=== PATIENT | male | born 1950 | race Caucasian/White ===

== ENCOUNTER 2021-08-05 02:33 | Outpatient (CLI) | payer OTHER, SELFPAY ==
[2021-08-05 10:14] LABS: Source Nasal/Nares
[2021-08-05 12:54] LABS: COVID-19 PCR Negative (Negative)
== END 2021-08-05 02:34 | disposition home or self-care (01) ==
LOC: LBO 02:33
PROVIDERS: PCP Nurse Practitioner Family; Visit Provider Ophthalmology
DX: Z20.822 Contact with and (suspected) exposure to COVID-19 (principal); Z01.818 Encounter for other preprocedural examination
CPT/HCPCS: 87635

== ENCOUNTER 2021-08-08 09:22 | Day surgery (SDC) | payer OTHER, SELFPAY ==
--- NOTE | 2021-08-07 18:20 | W.PREOPHP ---
Date of service: 08/08/21 Assessment and Plan Assessment and plan (1) Posterior subcapsular age-related cataract of left eye: Status: Acute Assessment and plan: Assessment: Visually significant cataract, left eye. Plan: Cataract extraction with lens implantation of the left eye. (2) Nuclear sclerotic cataract of left eye: Status: Acute Assessment and plan: Assessment: Visually significant cataract, left eye. Plan: Cataract extraction with lens implantation of the left eye. History of Present Illness History of Present Illness Chief Complaint: Progressive decreased vision Narrative: The patient is a 70-year-old male with history of progressive decreased vision in both eyes, left eye worse than right. He has significant difficulty with glare from bright lights. His blurred vision has been getting slowly worse over the past year at both distance and near. Rarely wears glasses as they do not help. Review of Systems All systems reviewed & are unremarkable except as noted in HPI and below Psychiatric Psychiatric: Reports anxiety [facility] Active Problem List (Updated 08/08/21 @ 09:53 by Oneal Colon) Nuclear sclerotic cataract of left eye (Acute) Posterior subcapsular age-related cataract of left eye (Acute) Medical History (Updated 08/08/21 @ 09:53 by Oneal Colon) BPH (benign prostatic hyperplasia) Chronic post-traumatic stress disorder (PTSD) after combat Coronary arteriosclerosis Diaphragmatic hernia HLD (hyperlipidemia) Hypothyroidism Myocardial infarction Surgical History (Updated 08/08/21 @ 09:53 by Oneal Colon) H/O hemorrhoidectomy Hx of vascular surgery AAA Surgery Done 07/19/21 discharged 07/21/21 per his vascular surgeon ok'd for cataract surgery 2 weeks after AAA repair Stented coronary artery Social History Smoking/Tobacco Use Status: Never Smoking risk assessment performed?: Yes Alcohol Intake: current Alcohol Intake frequency: holidays/special occasions only Alcohol type: beer Substance use type: does not use Do you feel safe at home: Yes Do you feel safe in your relationship?: Yes Meds Allergies and Home Medications Allergies Allergy/AdvReac Type Severity Reaction Status Date / Time cephalexin Allergy Severe Hives Verified 08/08/21 09:54 hydrochlorothiazide Allergy Severe Hives Verified 08/08/21 09:54 Home Medications Medication Instructions Recorded Confirmed Type aspirin 81 mg PO DAILY 08/05/21 08/08/21 History atorvastatin 80 mg PO DAILY 08/05/21 08/08/21 History capsaicin 1 applic TOPICAL BID PRN 08/05/21 08/05/21 History carvedilol 6.25 mg PO BID 08/05/21 08/08/21 History diclofenac sodium 1 applic TOPICAL DIRECTED 08/05/21 08/05/21 History docusate sodium 200 mg PO BID 08/05/21 08/05/21 History levothyroxine 75 mcg PO DAILY 08/05/21 08/08/21 History nitroglycerin 0.4 mg SUBLINGUAL DIRECTED 08/05/21 08/05/21 History tamsulosin 0.4 mg PO DAILY 08/05/21 08/08/21 History Exam Eyes General: appearance normal, both eyes and all related structures Pupils: PERRL EOM: EOM intact bilaterally Other: Corrected visual acuity is 20/25 right eye, 20/125 left eye. Intraocular pressure is 12 OD, 15 OS. Slit-lamp examination reveals pupils dilating to 5 mm OU. A moderate nuclear cataract is present in the right eye with trace posterior subcapsular cataract. In the left eye, there is severe nuclear clouding and sclerosis with severe posterior subcapsular cataract as well. There is no view of the posterior pole in the left eye due to dense cataract. Funduscopic examination in the right eye reveals disc cupping of 0.3 OU with normal vessels, macula, peripheral retina and vitreous. Resp Auscultation: clear to auscultation bilaterally Cardio Rate: regular rate Rhythm: regular rhythm
[2021-08-08 09:59] VITALS: BP 151/98; PULSE 78; RESP 16; TEMP 36.5; O2SAT 97
[2021-08-08] MEDS: Tropicam./Phenyleph. (1/2.5%) 5 ML BTL OD ×3 (10:17→10:27)
--- NOTE | 2021-08-08 10:26 | ANES.PREOP_ITS ---
General Info Date of Service Date Performed: 08/08/21 Height: 5 ft 7 in Weight: 78.471 kg Body Mass Index (BMI): 27.1 Surgical Procedure: Operation Date: 08/08/21 12:40 Proposed Procedures Side Surgeon p Cataract Extraction with IOL Implant Right Luke Ordaz MD Meds Allergies and Home Medications Allergies Allergy/AdvReac Type Severity Reaction Status Date / Time cephalexin Allergy Severe Hives Verified 08/08/21 09:54 hydrochlorothiazide Allergy Severe Hives Verified 08/08/21 09:54 Home Medication Medication Instructions Recorded aspirin 81 mg PO DAILY 08/05/21 atorvastatin 80 mg PO DAILY 08/05/21 capsaicin 1 applic TOPICAL BID PRN 08/05/21 carvedilol 6.25 mg PO BID 08/05/21 diclofenac sodium 1 applic TOPICAL DIRECTED 08/05/21 docusate sodium 200 mg PO BID 08/05/21 levothyroxine 75 mcg PO DAILY 08/05/21 nitroglycerin 0.4 mg SUBLINGUAL DIRECTED 08/05/21 tamsulosin 0.4 mg PO DAILY 08/05/21 Current Visit Medications: Current Medications Generic Name Dose Route Start Last Admin Trade Name Freq PRN Reason Stop Dose Admin Acetaminophen 1,000 mg 08/08/21 06:00 Acetaminophen 500 Mg Tab PO Q4H PRN PRN Miscellaneous Medication 0 ml 08/08/21 06:00 Prednisolone 1%, Moxifloxacin 0.5%, Nepafenac 0.1% 5ml Btl OD DIRECTED [facility] Miscellaneous Medication 0 ml 08/08/21 06:00 08/08/21 10:22 Tropicam./Phenyleph. (1/2.5%) 5 Ml Btl OD 1 drp DIRECTED [facility] Administration Tetracaine HCl 0 ml 08/08/21 06:00 Tetracaine 0.5% 4 Ml Btl OD DIRECTED [facility] PFSH Active Problems Active Problems: Problem Status Onset Code Nuclear sclerotic cataract of left eye H25.12 Posterior subcapsular age-related cataract of left eye H25.042 Medical History Active Problem List (Updated 08/08/21 @ 09:53 by Oneal Colon) Nuclear sclerotic cataract of left eye (Acute) Posterior subcapsular age-related cataract of left eye (Acute) Medical History (Updated 08/08/21 @ 09:53 by Oneal Colon) BPH (benign prostatic hyperplasia) Chronic post-traumatic stress disorder (PTSD) after combat Coronary arteriosclerosis Diaphragmatic hernia HLD (hyperlipidemia) Hypothyroidism Myocardial infarction Medical History Comments:: Pt. states he has a hard time coming out of anesthesia Surgical History Surgical History (Updated 08/08/21 @ 09:53 by Oneal Colon) H/O hemorrhoidectomy Hx of vascular surgery AAA Surgery Done 07/19/21 discharged 07/21/21 per his vascular surgeon ok'd for cataract surgery 2 weeks after AAA repair Stented coronary artery Tobacco Smoking/Tobacco Use Status: Never Alcohol Alcohol Intake: current Alcohol intake frequency: holidays/special occasions only Alcohol type: beer Substance Use Substance use type: does not use Vital Signs and Lab Results Vital Signs Most Recent Vital Signs in EMR: Most Recent Vital Signs Temp Pulse Resp BP Pulse Ox 36.5 C 78 16 151/98 H 97 08/08/21 09:59 08/08/21 09:59 08/08/21 09:59 08/08/21 09:59 08/08/21 09:59 Lab Results Blood Type / Crossmatch: No Data to Display Complete Blood Count: No Data to Display Complete Metabolic Panel: No Data to Display Liver Function Panel: No Data to Display Coagulation Panel: No Data to Display Cardiac Panel: No Data to Display Arterial Blood Gas: No Data to Display Venous Blood Gas: No Data to Display Pancreas Panel: No Data to Display Thyroid Panel: No Data to Display Infectious Disease: Coronavirus (COVID-19)(PCR) Negative (Negative) 08/05/21 09:15 08/05/21 Coronavirus 2019 Source Nasal/Nares 08/05/21 09:15 08/05/21 Blood Cultures: No Data to Display Toxicology Panel: No Data to Display Anesthesia Assessment and Plan Anesthesia History Personal History: Delayed Emergence (Agitation with anesthesia) Family History: No Family History of Anesthesia Complications Exercise Tolerance Exercise Tolerance: Metabolic Equivalents>4 Pertinent Negatives Pertinent Negatives: No Symptoms of GERD Cardiac & Pulmonary Exam Cardiac Exam: Normal S1/S2 Heart Sounds Pulmonary Exam: Clear Bilateral Breath Sounds Implantable Cardiac Device Does patient have a Pacemaker or an ICD?: No Airway Exam Known Difficult Airway: No Mallampati Class: 1 Mouth Opening: Normal (> 3cm) Thyromental Distance: Greater than 3 cm Neck Range of Motion: Full ROM Neck Circumference: Normal Teeth Condition: Removable Dentures/Plates Upper and Removable Dentures/Plates Lower ASA Classification ASA Score: ASA 3 Emergency Case?: No NPO Status NPO Status: NPO Clears >2 hours, Solids >8 hours Anesthesia Plan Resuscitation Status: Full Code Anesthesia Technique: MAC Anesthesia Airway Planned: Natural Airway Monitors Used: Standard Monitors
[2021-08-08 10:47] VITALS: BMI 27.1
[2021-08-08] MEDS: Tetracaine 0.5% 4 ML BTL OD (10:59)
[2021-08-08] MEDS: Lidocaine 2% Jelly 6 ML SYR (10:59)
[2021-08-08] MEDS: Duovisc Viscoelastic System EACH 1 EACH (11:06)
[2021-08-08] MEDS: Balanced Salt Soln.-PLUS 500 ML BAG (11:08)
[2021-08-08] MEDS: Trypan Blue 0.06% 0.5 ML SYR (11:11)
[2021-08-08] MEDS: Povidone-Iodine Ophth 30 ML BTL (11:11)
[2021-08-08 11:30] VITALS: BP 136/79; PULSE 78; RESP 16; TEMP 36.6; O2SAT 96
--- NOTE | 2021-08-08 11:33 | W.PM.DSUDISC ---
Discharge Plan Disposition Patient Disposition: HOME Condition: Good Discharge Details Attending Provider: Luke Ordaz Primary Care Provider: Uri Grimes [facility]s and New Rx's Prescriptions: No Action atorvastatin 80 mg Tablet 80 mg PO DAILY RF: 0 carvedilol 6.25 mg Tablet 6.25 mg PO BID RF: 0 levothyroxine 75 mcg Tablet 75 mcg PO DAILY RF: 0 tamsulosin 0.4 mg Capsule 0.4 mg PO DAILY RF: 0 nitroglycerin 0.4 mg Tablet, Sublingual 0.4 mg sublingual DIRECTED RF: 0 docusate sodium 100 mg Capsule 200 mg PO BID RF: 0 capsaicin 0.1 % Cream 1 applic TOPICAL BID PRNRF: 0 diclofenac sodium 1 % Gel 1 applic TOPICAL DIRECTED RF: 0 aspirin 81 mg Capsule,Delayed Release(Dr/Ec) 81 mg PO DAILY RF: 0 Discharge Instructions Stand Alone Forms: Post-op Topical Cataract, Kiarra Headey (DSU) Discharge Orders Discharge Orders: Discharge Order (Routine); Ordered 08/08/21 Ordered By: Luke Ordaz DS: Diagnosis Discharge Diagnosis (1) Posterior subcapsular age-related cataract of left eye: Status: Resolved (2) Nuclear sclerotic cataract of left eye: Status: Resolved
--- NOTE | 2021-08-08 11:34 | W.PM.OP ---
Date of service: 08/08/21 Time of Service: 11:34 Operative Note Operative Note DATE OF PROCEDURE: 08/08/21 PRE-OP DIAGNOSIS: Dense nuclear/posterior subcapsular cataract, left eye Poor red reflex, left eye Poorly dilating pupil, left eye PROCEDURE: Cataract extraction using phacoemulsification with intraocular lens implant, left eye, with pupillary dilation using Malyugin Ring and capsular staining using Vision Blue SURGEON: Luke Ordaz ANESTHESIA TYPE: Local By Surgeon and MAC Refer to Anesthesia Record ESTIMATED BLOOD LOSS: 0 PATHOLOGY: none sent COMPLICATIONS: None Patient was transported to: same day Patient's condition: stable Implants: [employer] Shan / [employer] Tecnis [id number] Indications: Progressive decreased vision due to cataract, left eye Procedure Description: CATARACT SURGERY OPERATIVE REPORT PREOPERATIVE DIAGNOSIS: 1. Dense nuclear/posterior subcapsular cataract, left eye 2. Poorly dilating pupil, left eye 3. Poor red reflex, left eye POSTOPERATIVE DIAGNOSIS: Same OPERATION: 1. Cataract extraction using phacoemulsification with posterior chamber intraocular lens implant, left eye. 2. Pupillary dilation and iris stabilization using Malyugin Ring 3. Capsular staining with VIsion Blue IOL: IOL Microbiology Lab Assistant/Model: Shan & Shan / ERICK Tecnis [id number] IOL Power: + 22.5 diopters IOL Serial Number: [id number] Optic Diameter: 6.0mm Haptic/Overall Diameter: 13.0mm PHACO INFO: Ross [employer]ion Vision System with OZil and Active Fluidics Cumulative Dispersed Energy (CDE): 12.32 seconds SURGEON: Luke Ordaz MD, TIFFANIE ANESTHESIA: Monitored Anesthesia Care (MAC), with local sub-tenon's anesthetic infiltration COMPLICATIONS: None SPECIMENS: None INDICATIONS FOR PROCEDURE: The patient is a 70-year-old gent with history of diminished visual acuity in his left eye. He is noted to have a dense nuclear/posterior subcapsular cataract in the left eye with a poor red reflex and poorly dilating pupil. The option of cataract surgery was offered to the patient and he felt he was symptomatic enough that he wished to proceed. PROCEDURE: The correct surgical eye was identified and marked as the left eye and the pupil was dilated in the preoperative area using mydriatics, cycloplegics, and NSAIDS (except in aspirin allergic patients). The dilated pupil size was 4.0 mm. He elected to proceed without oral sedation.. The patient was brought to the operating room where cardiopulmonary monitoring was instituted and surgical time-out was performed, confirming the correct operative eye and IOL power. Topical anesthesia was administered and ophthalmic povidone-iodine 5% was instilled into the conjunctival fornices. Lidocaine gel was applied to the cornea and the chad-ocular area was prepped with Betadine 10% solution and draped in the usual sterile fashion for intraocular surgery, including an aperture drape. A Tegaderm transparent film dressing was cut in half and used to cover the lashes and lid margins. Care was taken to sequester the lashes and lid margins under the Tegaderm dressing. A lid speculum was placed between the lids of the operative eye and the Gregg-Yvan operating microscope was maneuvered into position. Nidia scissors were then used to make a conjunctival buttonhole approximately 6mm posterior to the limbus in the inferonasal quadrant. Blunt dissection was carried out to expose bare sclera, and a blunt-tipped sub-tenon?s anesthesia cannula was introduced and passed posteriorly along the globe where non-preserved plain lidocaine was injected into posterior sub-Tenon?s space. A sideport knife was used to make a paracentesis port superiorly/superiortemporally. Intraocular phenylephrine/lidocaine was injected into the anterior chamber. Air was then injected into anterior chamber, followed by Vision Blue, which was painted over the anterior capsule and then irrigated out with BSS. The anterior chamber was then filled with viscoelastic. A 2.4mm keratome knife was used to create a half-thickness groove at the limbus and then to construct a three-plane near-clear corneal tunnel extending 2.0mm into clear cornea temporally. A 7.0 mm Malyugin Ring was then inserted into the pupillary space and engaged with the Kuglen hook. A flap was raised on the anterior capsule and capsulorhexis forceps were used to complete a continuous curvilinear capsulorhexis of 5.5 mm. Balanced salt solution was then used to perform cortical cleaving hydrodissection and nuclear hydrodelineation until the lens could be freely rotated within the capsular bag. The lens nucleus was then disassembled and removed within the capsular bag and iris plane using phacoemulsification. Residual cortical material was removed using the 45-degree angled silicone I/A tip with 0.3mm port. The posterior capsule was carefully polished to remove as much residual lens epithelial cells as safely possible. The capsular bag was then inflated and the anterior chamber deepened with viscoelastic. The lens implant described above was inserted into the capsular bag using the ERICK [place] Injector. A Kuglen hook was used to dial the IOL into position. The Malyugin Ring was removed in the reverse order of its insertion. Residual viscoelastic was then removed first from posterior to the IOL, then from the anterior chamber using the I/A handpiece. The lens implant was noted to center nicely within the capsular bag. The incisions were stromally hydrated, and the anterior chamber was reformed using BSS. Then 0.5cc of moxifloxacin 1.0mg/ml were injected into the capsular bag and anterior chamber. The incisions were checked with a Weck spear and found to be secure. Several drops of ophthalmic povidone-iodine 5% were then applied to the eye followed by two drops of Imprimis combination prednisolone/moxifloxacin/nepafenac solution. The drapes were removed and a clear plastic protective eye shield was placed over the eye. The patient was then returned to Same Day Surgery in stable condition.
--- NOTE | 2021-08-08 12:14 | W.ANESPOSTOP ---
Postoperative Evaluation Date, Time and Location Date Performed: 08/08/21 Time Performed: 11:32 Patient Location: Day Surgery Unit Vital Signs Most Recent Imported Vital Signs: Most Recent Vital Signs Temp Pulse Resp BP Pulse Ox 36.6 C 78 16 136/79 96 08/08/21 11:30 08/08/21 11:30 08/08/21 11:30 08/08/21 11:30 08/08/21 11:30 Pain Score Most Recent Pain Score: Most Recent Pain Score Pain Level 0 08/08/21 11:30 Assessment Mental Status: Awake (Alert & Oriented to Patient Baseline) Airway and Respiratory Function: Patent airway with normal (patient baseline) respiratory exam Cardiovascular Function: Hemodynamically Stable Hydration Status: Adequately Hydrated Nausea & Vomiting: No Nausea or Vomiting Pain: Pt. Denies Any Pain Peripheral Nerve Block: Patient did not receive a nerve block
== END 2021-08-08 11:55 | disposition home or self-care (01) ==
PROVIDERS: PCP Nurse Practitioner Family; Visit Provider Ophthalmology
PROC: (CPT 66982; principal; 2021-08-08 12:30)
DX: H25.042 Posterior subcapsular polar age-related cataract, left eye (principal); H57.03 Miosis; I25.10 Atherosclerotic heart disease of native coronary artery without angina pectoris; E78.5 Hyperlipidemia, unspecified
CPT/HCPCS: 66982; V2632

== ENCOUNTER 2021-08-17 02:20 | Outpatient (CLI) | payer OTHER, SELFPAY ==
[2021-08-17 12:23] LABS: Source Nasal/Nares
[2021-08-17 15:11] LABS: COVID-19 PCR Negative (Negative)
== END 2021-08-17 02:21 | disposition home or self-care (01) ==
LOC: LBO 02:20
PROVIDERS: PCP Nurse Practitioner Family; Visit Provider Ophthalmology
DX: Z20.822 Contact with and (suspected) exposure to COVID-19 (principal); Z01.818 Encounter for other preprocedural examination
CPT/HCPCS: 87635

== ENCOUNTER 2021-08-19 06:21 | Day surgery (SDC) | payer OTHER, SELFPAY ==
[2021-08-19 06:40] VITALS: BP 129/80; PULSE 74; RESP 16; TEMP 36.5; O2SAT 97
[2021-08-19] MEDS: Tropicam./Phenyleph. (1/2.5%) 5 ML BTL OD ×3 (06:47→06:58)
--- NOTE | 2021-08-19 07:02 | W.ANESPRE ---
General Info Date of Service Date Performed: 08/19/21 Height: 5 ft 7 in Weight: 75.3 kg Body Mass Index (BMI): 25.9 Surgical Procedure: Operation Date: 08/19/21 07:40 Proposed Procedures Side Surgeon p Cataract Extraction with IOL Implant Right Luke Ordaz MD Meds Allergies and Home Medications Allergies Allergy/AdvReac Type Severity Reaction Status Date / Time cephalexin Allergy Severe Hives Verified 08/19/21 06:38 hydrochlorothiazide Allergy Severe Hives Verified 08/19/21 06:38 Home Medication Medication Instructions Recorded aspirin 81 mg PO DAILY 08/05/21 atorvastatin 80 mg PO DAILY 08/05/21 capsaicin 1 applic TOPICAL BID PRN 08/05/21 carvedilol 6.25 mg PO BID 08/05/21 diclofenac sodium 1 applic TOPICAL DIRECTED 08/05/21 docusate sodium 200 mg PO BID 08/05/21 levothyroxine 75 mcg PO DAILY 08/05/21 nitroglycerin 0.4 mg SUBLINGUAL DIRECTED 08/05/21 tamsulosin 0.4 mg PO DAILY 08/05/21 Current Visit Medications: Current Medications Generic Name Dose Route Start Last Admin Trade Name Freq PRN Reason Stop Dose Admin Acetaminophen 1,000 mg 08/19/21 06:00 Acetaminophen 500 Mg Tab PO Q4H PRN PRN Miscellaneous Medication 0 ml 08/19/21 06:00 Prednisolone 1%, Moxifloxacin 0.5%, Nepafenac 0.1% 5ml Btl OD DIRECTED [facility] Miscellaneous Medication 0 ml 08/19/21 06:00 08/19/21 06:58 Tropicam./Phenyleph. (1/2.5%) 5 Ml Btl OD 1 drp DIRECTED [facility] Administration Tetracaine HCl 0 ml 08/19/21 06:00 Tetracaine 0.5% 4 Ml Btl OD DIRECTED [facility] PFSH Active Problems Active Problems: Problem Status Onset Code Nuclear sclerotic cataract of left eye H25.12 Posterior subcapsular age-related cataract of left eye H25.042 Medical History Medical History BPH (benign prostatic hyperplasia) Chronic post-traumatic stress disorder (PTSD) after combat Coronary arteriosclerosis Diaphragmatic hernia HLD (hyperlipidemia) Hypothyroidism Myocardial infarction Medical History Comments:: Pt. states he has a hard time coming out of anesthesia Surgical History Surgical History H/O hemorrhoidectomy Hx of vascular surgery AAA Surgery Done 07/19/21 discharged 07/21/21 per his vascular surgeon ok'd for cataract surgery 2 weeks after AAA repair Stented coronary artery Tobacco Smoking/Tobacco Use Status: Never Alcohol Alcohol Intake: current Alcohol intake frequency: holidays/special occasions only Alcohol type: beer Substance Use Substance use type: does not use Vital Signs and Lab Results Vital Signs Most Recent Vital Signs in EMR: Most Recent Vital Signs Temp Pulse Resp BP Pulse Ox 36.5 C 74 16 129/80 97 08/19/21 06:40 08/19/21 06:40 08/19/21 06:40 08/19/21 06:40 08/19/21 06:40 Lab Results Blood Type / Crossmatch: No Data to Display Complete Blood Count: No Data to Display Complete Metabolic Panel: No Data to Display Liver Function Panel: No Data to Display Coagulation Panel: No Data to Display Cardiac Panel: No Data to Display Arterial Blood Gas: No Data to Display Venous Blood Gas: No Data to Display Pancreas Panel: No Data to Display Thyroid Panel: No Data to Display Infectious Disease: Coronavirus (COVID-19)(PCR) Negative (Negative) 08/17/21 09:12 08/17/21 Coronavirus 2019 Source Nasal/Nares 08/17/21 09:12 08/17/21 Blood Cultures: No Data to Display Toxicology Panel: No Data to Display Anesthesia Assessment and Plan Anesthesia History Personal History: No History of Anesthesia Complications Family History: No Family History of Anesthesia Complications Exercise Tolerance Exercise Tolerance: Metabolic Equivalents>4 Cardiac & Pulmonary Exam Cardiac Exam: Normal S1/S2 Heart Sounds Pulmonary Exam: Clear Bilateral Breath Sounds Implantable Cardiac Device Does patient have a Pacemaker or an ICD?: No Airway Exam Known Difficult Airway: No Mallampati Class: 1 Mouth Opening: Normal (> 3cm) Thyromental Distance: Greater than 3 cm Neck Range of Motion: Full ROM Neck Circumference: Normal Teeth Condition: Removable Dentures/Plates Upper and Removable Dentures/Plates Lower ASA Classification ASA Score: ASA 3 Emergency Case?: No NPO Status NPO Status: NPO Clears >2 hours, Solids >8 hours Anesthesia Plan Resuscitation Status: Full Code Anesthesia Technique: MAC Anesthesia Airway Planned: Natural Airway Monitors Used: Standard Monitors
[2021-08-19 07:09] VITALS: BMI 25.9
--- NOTE | 2021-08-19 07:24 | W.PREOPHP ---
Date of service: 08/19/21 Time of Service: 07:24 Assessment and Plan Assessment and plan (1) Nuclear sclerotic cataract of right eye: Status: Acute Assessment and plan: Cataract right eye. Plan: cataract surgery with PCIOL OD (2) Posterior subcapsular age-related cataract, right eye: Status: Acute Assessment and plan: A: Cataract OD Plan: cataract surgery with PCIOL OD History of Present Illness History of Present Illness Chief Complaint: decreased vision right eye Narrative: decreased vision right eye secondary to cataract Review of Systems All systems reviewed & are unremarkable except as noted in HPI and below PFSH Medical History BPH (benign prostatic hyperplasia) Chronic post-traumatic stress disorder (PTSD) after combat Coronary arteriosclerosis Diaphragmatic hernia HLD (hyperlipidemia) Hypothyroidism Myocardial infarction Surgical History H/O hemorrhoidectomy Hx of vascular surgery AAA Surgery Done 07/19/21 discharged 07/21/21 per his vascular surgeon ok'd for cataract surgery 2 weeks after AAA repair Stented coronary artery Social History Smoking/Tobacco Use Status: Never Smoking risk assessment performed?: Yes Alcohol Intake: current Alcohol Intake frequency: holidays/special occasions only Alcohol type: beer Substance use type: does not use Do you feel safe at home: Yes Do you feel safe in your relationship?: Yes Meds Allergies and Home Medications Allergies Allergy/AdvReac Type Severity Reaction Status Date / Time cephalexin Allergy Severe Hives Verified 08/19/21 06:38 hydrochlorothiazide Allergy Severe Hives Verified 08/19/21 06:38 Home Medications Medication Instructions Recorded Confirmed Type aspirin 81 mg PO DAILY 08/05/21 08/19/21 History atorvastatin 80 mg PO DAILY 08/05/21 08/19/21 History capsaicin 1 applic TOPICAL BID PRN 08/05/21 08/18/21 History carvedilol 6.25 mg PO BID 08/05/21 08/19/21 History diclofenac sodium 1 applic TOPICAL DIRECTED 08/05/21 08/18/21 History docusate sodium 200 mg PO BID 08/05/21 08/19/21 History levothyroxine 75 mcg PO DAILY 08/05/21 08/19/21 History nitroglycerin 0.4 mg SUBLINGUAL DIRECTED 08/05/21 08/18/21 History tamsulosin 0.4 mg PO DAILY 08/05/21 08/19/21 History Exam Eyes Other: cataract right eye Resp Auscultation: clear to auscultation bilaterally Cardio Rate: regular rate Rhythm: regular rhythm Results Last Vital Signs Temp 36.5 C 08/19/21 06:40 Pulse 74 08/19/21 06:40 Resp 16 08/19/21 06:40 BP 129/80 08/19/21 06:40 Pulse Ox 97 08/19/21 06:40
[2021-08-19] MEDS: Duovisc Viscoelastic System EACH 1 EACH (07:41)
[2021-08-19] MEDS: Balanced Salt Soln.-PLUS 500 ML BAG (07:41)
[2021-08-19] MEDS: Lidocaine 2% Jelly 6 ML SYR (07:42)
[2021-08-19] MEDS: Povidone-Iodine Ophth 30 ML BTL (07:43)
[2021-08-19] MEDS: Tetracaine 0.5% 4 ML BTL OD (07:46)
[2021-08-19 08:02] VITALS: BP 132/79; PULSE 69; RESP 18; TEMP 36.6; O2SAT 94
--- NOTE | 2021-08-19 08:02 | PDOC.DSDIS_ITS ---
Discharge Plan Disposition Patient Disposition: HOME Condition: Good Discharge Details Attending Provider: Luke Ordaz Primary Care Provider: Uri Grimes [place] Meds and New Rx's Prescriptions: No Action atorvastatin 80 mg Tablet 80 mg PO DAILY RF: 0 carvedilol 6.25 mg Tablet 6.25 mg PO BID RF: 0 levothyroxine 75 mcg Tablet 75 mcg PO DAILY RF: 0 tamsulosin 0.4 mg Capsule 0.4 mg PO DAILY RF: 0 nitroglycerin 0.4 mg Tablet, Sublingual 0.4 mg sublingual DIRECTED RF: 0 docusate sodium 100 mg Capsule 200 mg PO BID RF: 0 capsaicin 0.1 % Cream 1 applic TOPICAL BID PRNRF: 0 diclofenac sodium 1 % Gel 1 applic TOPICAL DIRECTED RF: 0 aspirin 81 mg Capsule,Delayed Release(Dr/Ec) 81 mg PO DAILY RF: 0 Discharge Instructions Stand Alone Forms: Post-op Topical Cataract, Kiarra Aggarwal (DSU) Discharge Orders Discharge Orders: Discharge Order (Routine); Ordered 08/19/21 Ordered By: Luke Ordaz DS: Diagnosis Discharge Diagnosis (1) Nuclear sclerotic cataract of right eye: Status: Resolved (2) Posterior subcapsular age-related cataract, right eye: Status: Resolved
--- NOTE | 2021-08-19 08:03 | ROE_ITS ---
Date of service: 08/19/21 Time of Service: 08:03 Operative Note Operative Note DATE OF PROCEDURE: 08/19/21 PRE-OP DIAGNOSIS: Nuclear/posterior subcapsular cataract, right eye POST-OP DIAGNOSIS: same PROCEDURE: 1. Cataract extraction by phacoemulsification with intraocular lens implantation, right eye, with pupillary expansion device SURGEON: Luke Ordaz ANESTHESIA TYPE: Local By Surgeon and MAC Refer to Anesthesia Record PATHOLOGY: none sent COMPLICATIONS: None Patient was transported to: same day Patient's condition: stable Implants: [employer] Shan / [employer] Tecnis [id number] Indications: Progressive decreased vision due to cataract, right eye, with poorly dilating pupil Procedure Description: CATARACT SURGERY OPERATIVE REPORT PREOPERATIVE DIAGNOSIS: 1. Nuclear/posterior subcapsular cataract, right eye 2. Poorly dilating pupil, right eye POSTOPERATIVE DIAGNOSIS: Same OPERATION: 1. Cataract extraction using phacoemulsification with posterior chamber intraocular lens implant, right eye. 2. Pupillary dilation and iris stabilization using Malyugin Ring IOL: IOL English Professor/Model: Shan & Shan / ERICK Tecnis [id number] IOL Power: + 22.5 diopters IOL Serial Number: [id number] Optic Diameter: 6.0mm Haptic/Overall Diameter: 13.0mm PHACO INFO: Ross [employer] Vision System with OZil and Active [employer]uidics Cumulative Dispersed Energy (CDE): 6.34 seconds SURGEON: Luke Ordaz MD, TIFFANIE ANESTHESIA: Monitored Anesthesia Care (MAC), with local sub-tenon's anesthetic infiltration COMPLICATIONS: None SPECIMENS: None INDICATIONS FOR PROCEDURE: The patient is a 70-year-old gentleman with history of diminished visual acuity in both eyes secondary to the development of bilateral cataract. He has already undergone cataract surgery in the left eye and is doing well postoperatively. He now presents for cataract surgery in the right eye. PROCEDURE: The correct surgical eye was identified and marked as the right eye and the pupil was dilated in the preoperative area using mydriatics and cycloplegics. The dilated pupil size was 4.0 mm. He elected to proceed without sedation.. The patient was brought to the operating room where cardiopulmonary monitoring was instituted and surgical time-out was performed, confirming the correct operative eye and IOL power. Topical anesthesia was administered and ophthalmic povidone-iodine 5% was instilled into the conjunctival fornices. Lidocaine gel was applied to the cornea and the chad-ocular area was prepped with Betadine 10% solution and draped in the usual sterile fashion for intraocular surgery, including an aperture drape. A Tegaderm transparent film dressing was cut in half and used to cover the lashes and lid margins. Care was taken to sequester the lashes and lid margins under the Tegaderm dressing. A lid speculum was placed between the lids of the operative eye and the Gregg-Yvan operating microscope was maneuvered into position. Nidia scissors were then used to make a conjunctival buttonhole approximately 6mm posterior to the limbus in the inferonasal quadrant. Blunt dissection was carried out to expose bare sclera, and a blunt-tipped sub-tenon?s anesthesia cannula was introduced and passed posteriorly along the globe where non- preserved plain lidocaine was injected into posterior sub-Tenon?s space. A sideport knife was used to make a paracentesis port inferiortemporally. Intraocular phenylephrine/lidocaine was injected in the anterior chamber. The anterior chamber was filled with viscoelastic. A 2.4mm keratome knife was used to create a half-thickness groove at the limbus and then to construct a three- plane near-clear corneal tunnel extending 2.0mm into clear cornea superiortemporally. A 7.0 mm Malyugin Ring was then inserted into the pupillary space and engaged with the Kuglen hook. A flap was raised on the anterior capsule and capsulorhexis forceps were used to complete a continuous curvilinear capsulorhexis of 5.0 mm. Balanced salt solution was then used to perform cortical cleaving hydrodissection and nuclear hydrodelineation until the lens could be freely rotated within the capsular bag. The lens nucleus was then disassembled and removed within the capsular bag and iris plane using phacoemulsification. Residual cortical material was removed using the 45-degree angled silicone I/A tip with 0.3mm port. The posterior capsule was carefully polished to remove as much residual lens epithelial cells as safely possible. The capsular bag was then inflated and the anterior chamber deepened with viscoelastic. The lens implant described above was inserted into the capsular bag using the ERICK [place] Injector. A Kuglen hook was used to dial the IOL into position. The Malyugin Ring was removed in the reverse order of its insertion. Residual viscoelastic was then removed first from posterior to the IOL, then from the anterior chamber using the I/A handpiece. The lens implant was noted to center nicely within the capsular bag. The incisions were stromally hydrated, and the anterior chamber was reformed using BSS. Then 0.5cc of moxifloxacin 1.0mg/ml were injected into the capsular bag and anterior chamber. The incisions were checked with a Weck spear and found to be secure. Several drops of ophthalmic povidone-iodine 5% were then applied to the eye followed by two drops of Imprimis combination prednisolone/moxifloxacin/nepafenac solution. The drapes were removed and a clear plastic protective eye shield was placed over the eye. The patient was then returned to Same Day Surgery in stable condition.
--- NOTE | 2021-08-19 08:24 | W.ANESPOSTOP ---
Postoperative Evaluation Date, Time and Location Date Performed: 08/19/21 Time Performed: 08:07 Patient Location: Day Surgery Unit Vital Signs Most Recent Imported Vital Signs: Most Recent Vital Signs Temp Pulse Resp BP Pulse Ox 36.6 C 69 18 132/79 94 08/19/21 08:02 08/19/21 08:02 08/19/21 08:02 08/19/21 08:02 08/19/21 08:02 Pain Score Most Recent Pain Score: Most Recent Pain Score Pain Level 0 08/19/21 08:02 Assessment Mental Status: Awake (Alert & Oriented to Patient Baseline) Airway and Respiratory Function: Patent airway with normal (patient baseline) respiratory exam Cardiovascular Function: Hemodynamically Stable Hydration Status: Adequately Hydrated Nausea & Vomiting: No Nausea or Vomiting Pain: Pt. Denies Any Pain Peripheral Nerve Block: Patient did not receive a nerve block
== END 2021-08-19 08:23 | disposition home or self-care (01) ==
PROVIDERS: PCP Nurse Practitioner Family; Visit Provider Ophthalmology
PROC: (CPT 66982; principal; 2021-08-19 07:30)
DX: H25.041 Posterior subcapsular polar age-related cataract, right eye (principal); H57.03 Miosis
CPT/HCPCS: 66982; V2632

== ENCOUNTER 2021-09-30 04:23 | Outpatient (CLI) | payer OTHER, SELFPAY ==
[2021-09-30 12:11] LABS: FREE T4 1.08 ng/dL (0.76-1.46); TSH 4.12 uIU/mL (0.36-3.74)
[2021-09-30 17:13] LABS: T3,Free 3.4 pg/mL (2.8-5.3)
== END 2021-09-30 04:24 | disposition home or self-care (01) ==
PROVIDERS: PCP Nurse Practitioner Family; Visit Provider Chiropractor
DX: E03.9 Hypothyroidism, unspecified (principal)
CPT/HCPCS: 36415; 84439; 84443; 84481